=== PATIENT | female | born 1975 | race Caucasian/White ===

== ENCOUNTER 2022-03-29 14:18 | Emergency (ER) | payer MEDICAID ==
[~2022-03-29] VITALS: Ht 165.1 cm; Wt 75.0 kg
[~2022-03-29 14:18] MED LIST: CLA10T PO; FLUO20CA39 PO; IRON18TA PO; NAPR-232 PO; TOP100T PO; TRAZ-89 PO
[2022-03-29 15:10] VITALS: BP 126/80
[2022-03-29] MEDS ORDERED: ketorolac trometh. 30mg/ml inj. IM ONE (16:15)
[2022-03-29] MEDS ORDERED: PRED20TA PO (16:32)
== END 2022-03-29 16:35 | disposition home or self-care (01) ==
LOC: ER 14:19
DX: M79.672 Pain in left foot (principal); J45.909 Unspecified asthma, uncomplicated; G89.29 Other chronic pain; M54.50 Low back pain, unspecified; F12.90 Cannabis use, unspecified, uncomplicated; Z90.49 Acquired absence of other specified parts of digestive tract; Z98.890 Other specified postprocedural states; Z88.8 Allergy status to other drugs, medicaments and biological substances
CPT/HCPCS: 73630; 96372; 99283; J1885